=== PATIENT | male | born 1950 | race Caucasian/White ===

== ENCOUNTER → 2016-10-27 | Day surgery (SDC) | payer MEDICARE ==
[~2016-10-27] VITALS: Ht 182.9 cm; Wt 102.0 kg
[~2016-10-27] MED LIST: ADENOSINE IV SOLN 3 MG/ML 20 ML VIAL IV ONE; ASPEC81 PO; BIMA0.01 OP; CRG3125 PO; FENTANYL CITRATE INJ 50 MCG/1 ML 2 ML VIAL ONE; HEPARIN SOD (PORCINE) 1000 UNIT/ML 10 ML VIAL ONE; ISOS60TA2 PO; LPT20 PO; MIDAZOLAM HCL 1 MG/ML 2ML VIAL ONE; NITROGLYCERIN/D5W 100MCG/ML 20ML SYR ONE; NTRSLP4 SL; NiCARDipine HCL INJ 2.5 MG/ML 10 ML AMP ONE; OMEP20CA9 PO; PLV75 PO
[2016-10-27 07:18] VITALS: BP 162/97; PULSE 63; TEMP 36.6; O2SAT 96; Ht 182.9 cm; Wt 102.0 kg
--- NOTE | 2016-10-27 09:28 | Procedure Note ---
Pre-Mod Sedation Assessment General Date of Moderate Sedation: Oct 27, 2016. Vital Signs: Vital Signs Past 12 Hours Date Time Temp Pulse Resp B/P Pulse Ox O2 Delivery O2 Flow Rate FiO2 10/27/16 07:18 36.6 63 16 162/97 96 Room Air Review Cardiovascular: regular rate, rhythm, no edema, no murmur Abdomen: normal bowel sounds, non tender, soft Lungs: chest non-tender, lungs clear, normal breath sounds Pre-Sedation Airway Assessment Oral Cavity: Dentures Short Thick Neck: No Hx of Sleep Apnea: No Smoking Status: Never Smoker Mallampati Classification: Class II ASA Classification: Class III Procedure Planning Contraindications-for Mod Sed: None Yes Notes The planned sedation has been discussed with the patient and consent obtained. I have identified the patient, determined the appropriateness of sedation and have assessed the patient immediately prior to the procedure. All medicine(s) and interventions are by my order.
--- NOTE | 2016-10-27 09:29 | Procedure Note ---
Post-Mod Sedation Assessment General Date of Moderate Sedation Oct 27, 2016. Vital Signs: Vital Signs Past 12 Hours Date Time Temp Pulse Resp B/P Pulse Ox O2 Delivery O2 Flow Rate FiO2 10/27/16 07:18 36.6 63 16 162/97 96 Room Air Review - Discharge Criteria Vital Signs Stable: Yes Alert/Oriented/Conversant: Yes Returned to Baseline Mental St: Yes Nausea Absent/Minimal: Yes Pain/Discomfort/Absent/Minimal: Yes Normal/Baseline Respirations: Yes Active Bleeding?: No Pt Received D/C Instructions: N/A Specific Proced. D/C Criteria Distal Pulses Present (Cardiac: Yes Groin site assessed-Card Cath: N/A Voided Prior To Discharge: N/A Discharged Patients Adult Escort/Transportation: N/A
--- NOTE | 2016-10-27 09:41 | Cardiac Catheterization ---
Procedure Note Procedure Date Oct 27, 2016. Pre-Procedure Diagnosis Angina, Positive Stress Test, CAD AUC Score 8 Post-Procedure Diagnosis Severe CAD Procedure(s) Performed Coronary Angiography, Left Heart Cath Pillar Man Dr. Herrera [employer] General Manager(s) Carmen PLASTER APPLICATOR Estimated Blood Loss 5cc Medication(s) Fentanyl, Heparin, Nicardipine, Nitroglycerin, Versed, Lidocaine 1% Summary of Findings Start time 0830 Stop time 0912 Lcx : 70% mid stenosis prior to origin of stent, stent patent RCA: Moderate diffuse disease RPDA/PL: Moderate diffuse disease Hemodynamics Rest Ao: 88/61/73 Final Ao: 132/76/101 LV: 122/6/10 Recommendations PCI without planned CABG (FFR prior to PCI) Specimens None Radiation Exposure (mGy) 1154 Contrast (mls) 70 Fluids (cc crystalloids) 220 nss Procedural Complication(s) None Disposition Patient remained in tutorial laboratory supervisor for FFR and possible PCI ACC Data Cardiac Status Clinical evaluation leading to the procedure CAD Presntation: Unstable angina, Positive Stress Test Anginal Classification: CCS II Heart Failure: No Cardiogenic Shock w/in 24Hrs: No Cardiac Arrest w/in 24Hrs: No Imaging studies past 6 months: Yes Stress studies past 6 months: Yes Stress Testing w/SPECT MPI: Yes - Positive, Risk/Extent of Ischemia (High) Coronary Anatomy Dominant: Right Left Main (% Stenosis): Normal LAD (% Stenosis): Ostial (0%), Proximal (10%), Mid (30-40%), Distal (20%) D1 (% Stenosis): Ostial (30%), Proximal (10%), Mid (30%), Distal (20%) Circumflex (% Stenosis): Ostial (0%), Proximal (10%), Mid (70% proximal to stent, stent patent), Distal (20%) OM1 (% Stenosis): Ostial (0%), Proximal (20$), Mid (10%), Distal (10%) RCA (% Stenosis): Ostial (0%), Proximal (10%), Mid (diffuse 40 -50%), Distal ( 50%) R PDA (% Stenosis): Ostial (10%), Proximal (20%), Mid (40%), Distal (20%) R PL1 (% Stenosis): Ostial (0%), Proximal (10%), Mid (40%), Distal (30%) R PL2 (% Stenosis): Ostial (10%, small vessel), Proximal (50-60%), Mid (10%), Distal (10%) Ramus (% Stenosis): Ostial (20%), Mid (0%), Distal (0%), Proximal (0%) Diagnostic Status: Elective Closure Device Percutaneous Entry Location: Radial Closure Device: Radial Band Recommendations: PCI without planned CABG Intraprocedure Events Significant Dissection: No Perforation: No
--- NOTE | 2016-10-27 10:07 | Procedure Note ---
Post-Mod Sedation Assessment General Date of Moderate Sedation Oct 27, 2016. Vital Signs: Vital Signs Past 12 Hours Date Time Temp Pulse Resp B/P Pulse Ox O2 Delivery O2 Flow Rate FiO2 10/27/16 10:00 60 16 160/88 96 Room Air 10/27/16 09:55 60 16 158/84 96 Room Air 10/27/16 07:18 36.6 63 16 162/97 96 Room Air Review - Discharge Criteria Vital Signs Stable: Yes Alert/Oriented/Conversant: Yes Returned to Baseline Mental St: Yes Nausea Absent/Minimal: Yes Pain/Discomfort/Absent/Minimal: Yes Normal/Baseline Respirations: Yes Active Bleeding?: No Pt Received D/C Instructions: N/A Specific Proced. D/C Criteria Distal Pulses Present (Cardiac: Yes Groin site assessed-Card Cath: N/A Voided Prior To Discharge: N/A Discharged Patients Adult Escort/Transportation: N/A
--- NOTE | 2016-10-27 10:24 | Cardiac Catheterization ---
Procedure Note Procedure Date Oct 27, 2016. Pre-Procedure Diagnosis Angina, Positive Stress Test, CAD AUC Score 8 Post-Procedure Diagnosis Cardiothoracic Finding (FFR of mid left circumflex stenosis not significant ( 0.88 )) Procedure(s) Performed Coronary Angiography, Fractional Flow [employer] B[employer] Maker Dr. Salguero Sand Car Worker(s) ЮЛИЯ Zepeda Estimated Blood Loss 15 ml Medication(s) Fentanyl, Heparin, Nicardipine (intra-arterial), Versed, Lidocaine 1%, Adenosine Summary of Findings Catheterization site: 6 Fr Slender [place] right radial artery. Inserted at time of diagnostic procedure. Equipment: 6 FR EBU 3.5 guide catheter, Wengo FFR pressure wire. IFR and FFR protocol: IV heparin given. Therapeutic ACT documented. After FFR pressure wire balanced and equalized the transducer was advanced past the mid left circumflex stenosis. IFR measured (0.98 ). Intravenous adenosine then administered at dose of 180ug/kg/min for 3 minutes. FFR measured ( 0.88 ). Follow up angiography then performed from orthogonal projections. Hemostasis: Terumo TR band. Complications : none. Findings: 70% mid left circumflex stenosis on diagnostic angiography. IFR 0.98 across this stenosis. FFR 0.88. These values are not physiologically significant. Final stenosis 70%. No dissection,thrombus,perforation,or distal embolic event. MONSE 3 flow. Plan: Medical management of CAD and CAD risk factors. Continued cardiology care by the [facility] cardiology service. Hemodynamics Rest Ao: 88/61/73 mm Hg Final Ao: 169/90/123 mm Hg LV: NA Recommendations Medical therapy and/or Counseling Specimens None Radiation Exposure (mGy) Total of 2399 for both diagnositc and FFR procedures. Contrast (mls) Total of 125 ml Optiray for both procedures. Fluids (cc crystalloids) Total of 300 ml for both procedures. Drains none Procedural Complication(s) None Disposition Binding Cutter Holding/Recovery ACC Data Cardiac Status Clinical evaluation leading to the procedure CAD Presntation: Stable angina, Positive Stress Test Anginal Classification: CCS II Heart Failure: No Cardiogenic Shock w/in 24Hrs: No Cardiac Arrest w/in 24Hrs: No Imaging studies past 6 months: Yes Stress studies past 6 months: Yes Standard Exercise Stress Test: No Stress Echocardiogram: Yes - Positive, Risk/Extent of Ischemia (High) Stress Testing w/SPECT MPI: No Cardiac CTA: No Coronary Anatomy Dominant: Right (See DR. Herrera's diagnostic cath reprt) Diagnostic Physician's Name: Edilberto Herrera DO Closure Device Percutaneous Entry Location: Radial Closure Device: Radial Band Recommendations: Medical therapy and/or Counseling Lesion Segment Name: Mid left circumflex Stenosis Prior to Rx (%): 70 Chronic Total Occlusion: No IVUS: No FFR: Yes Ratio: greater than 0.75% Pre-Procedure MONSE Flow: 3 Lesion Complexity: Non-High/Non-C Lesion Length (mm): 4 mm Thrombus Present: No Bifurcation Lesion: No Guidewire Across Lesion: Yes Guidewire: Stenosis Post-Procedure (%): 70 Post-Procedure MONSE Flow: 3 Device(s) Deployed: No Intraprocedure Events Significant Dissection: No Perforation: No
--- NOTE | 2016-10-27 11:36 | Discharge Instructions ---
Discharge Instructions Procedure Procedure Date: Oct 27, 2016. Reason for Visit: Abn Stress Test *Dr Herrera To Do*. Discharge Discharge Date: Oct 27, 2016. Discharge Diagnosis: s/p cardiac catheterization demonstrating moderate left circumflex stenosis, not significant by FFR Last Recorded Wt (Kilograms): 102 Anesthesia Post Anesthesia Instructions: If you have had General Anesthesia or IV Sedation: * Do not drive today. * Resume driving when surgeon permits. * Do not make important decisions or sign legal documents today. * Call surgeon for: 1. Temperature elevations greater than 101 degrees F. 2. Uncontrollable pain. 3. Excessive bleeding. 4. Persistent nausea and vomiting. 5. Medication intolerance (nausea, vomiting or rash). * For nausea and vomiting use only clear liquids such as: tea, soda, bouillon until nausea subsides, then gradually increase diet as tolerated. * If you have any concerns or questions, call your surgeon's office. If physician is unavailable and it is an emergency, call 911 or go to the nearest emergency room. Instructions Activity Recommendations: limitations as noted below Return to School/Work: with the following limitations Recommended Home Diet: resume previous diet, low sodium, low cholesterol Allergies: Coded Allergies: Amlodipine (Verified Allergy, Unknown, SHORTNESS OF BREATH, 11/05/14) LETHARGY Lisinopril (Verified Allergy, Unknown, SHORTNESS OF BREATH, 11/05/14) LETHARGY Metoprolol (Verified Allergy, Unknown, SHORTNESS OF BREATH, 11/05/14) LETHARGY Valsartan (Verified Allergy, Unknown, SHORTNESS OF BREATH, 11/05/14) LETHARGY Provider Instructions ACTIVITY RECOMMENDATIONS: Excess manipulation of the wrist should be avoided for the next 24-48 hours. * No lifting over 2 pounds (approximately a 1/2 gallon of milk) with the utilized arm for 24 hours. * No strenuous activity such as bowling or tennis for 3 days. * Keep the site of the procedure covered with a bandage for 24 hours. *You may shower the day after the procedure. Do not take a tub bath or submerge the puncture site in water for the next 3 days. *Do not operate any motorized equipment for 3 days. SPECIAL CARE INSTRUCTIONS: The site may be slightly bruised and sore following your procedure. Should any of the following occur, contact the Dr. who performed your procedure. 1. Redness/inflammation, swelling, chills, or fever, or colored drainage at procedure site within 3-7 days after your procedure. 2. Coldness, discoloration, ongoing numbness, severe pain, or swelling. Expect mild tingling of hand and tenderness at the puncture site for up to three days. If this persists beyond three days, or other symptoms develop, notify the Dr. who performed your procedure. BLEEDING: If the procedure site on your wrist begins to bleed, do not panic 1. Place 1 or 2 fingers firmly just slightly above the insertion site to stop the bleeding. You may be able to feel your pulse as you hold pressure. 2. Lift your finger after 5 minutes to see if the bleeding has stopped. 3. Once the bleeding has stopped, gently wipe the wrist area clean with a bandage. * If the bleeding from your wrist does not stop after 10 minutes, or if there is a large amount of bleeding or spurting, call 911 (do not drive yourself to the hospital). SKIN IRRITATION: * You may experience some redness and/or swelling in the area where radiation was administered. If any skin irritation occurs, please contact your family physician. FOLLOW UP VISIT: Keep any scheduled doctor appointments. Follow Up Additional Instructions: Follow up with Dr. Muller as scheduled Bryn Ivey Recommendations: Call your doctor if: * Temperature above 101 degrees * Pain not relieved by pain medicine ordered * There is increased drainage or redness from any incision * You have any unanswered questions or concerns. Your Doctors Instructions noted above were prepared by provider Edilberto Herrera. Patient Signature Section: Patient Instructions Signature Page Jorge Huitron Patient (or Guardian) Signature/Date: I have read and understand the instructions given to me by my caregivers. Caregiver/RN/Doctor Signature/Date: The above-named patient and/or guardian has received patient instructions on this date. + Original Patient Signature Page (only) stays with chart. Please make copy for patient.
[2016-10-27 12:20] VITALS: BP 124/72; PULSE 60; O2SAT 98
== END | disposition home or self-care (01) ==
LOC: C.CATH 06:14
PROVIDERS: ATTEND Internal Medicine Cardiovascular Disease
DX: I25.119 Atherosclerotic heart disease of native coronary artery with unspecified angina pectoris (principal); Z79.82 Long term (current) use of aspirin